=== PATIENT | male | born 1950 | race Caucasian/White ===

== ENCOUNTER 2017-02-23 17:17 | Emergency (ER) | payer OTHER ==
[~2017-02-23] VITALS: Ht 190.5 cm; Wt 127.0 kg
[~2017-02-23 17:17] MED LIST: AMITRIPTYLINE; ASPIRIN325 PO; ATORVASTATIN CA40 MG PO; BENICAR HCT 201 EACH PO; BENICAR HCT 401 EAC1 PO; BREO ELLIPTA 11 EACH IH; BUPRENORPHINE HC2 MG SUBLING; BUTRANS1 EAC1; BYSTOLIC 5 MG5 M1 PO; BYSTOLIC10 MG PO; CARDIZEM CD180 MG PO; CIPROFLOXACIN500 M3 PO; CO Q-10100 MG PO; COZAAR 25 MG TA25 M1 PO; CRESTOR10 MG PO; D3 + K2 DOTS 11 EACH PO; DOXYCYCLINE 10100 MG PO; ELIQUIS5 MG PO; FENOFIBRATE160 MG PO; FISH OIL 1,0001 EAC8 PO; FISH OIL 1,001000 M2 PO; FLEXERIL; FLORASTOR250 MG PO; GLUCOPHAGE500 MG PO; GLUCOVANCE 5-51 EACH PO; GLYBURIDE; GLYBURIDE 2.52.5 M1 PO; GLYBURIDE 5 MG T5 M1 PO; HYDRALAZINE 2525 M1 PO; HYDROCODON-ACE1 EAC5 PO; LOSARTAN-HCTZ1 EAC1 PO; LYRICA 75 MG CA75 MG PO; MAG6464 MG PO; MAGNESIUM; MAGOX 400400 MG PO; METFORMIN; NEURONTIN 300300 M1; NEURONTIN600 MG PO; NITROGLYCERIN0.4 MG SL; NORCO 10-325 T1 EACH PO; NORFLEX100 MG PO; OMEPRAZOLE 20 M20 M1 PO; PERCOCET 5-3251 EACH PO; PIOGLITAZONE15 MG; PIOGLITAZONE15 MG PO; PREDNISONE 10 M10 MG PO; PROTONIX40 M1 PO; RYTHMOL SR225 MG PO; SIMVASTATIN40 MG PO; SIMVASTATIN80 MG PO; SPIRIVA INH; TAMSULOSIN HCL0.4 M1 PO; TOPROL XL50 MG PO; VICODIN 5-3001 EACH; VITAMIN D3400 UNI2 PO; XARELTO; XARELTO15 MG PO; ZOCOR
[2017-02-23] MEDS ORDERED: DOXYCYCLINE 10100 MG PO (17:47)
[2017-02-23 18:00] VITALS: BP 147/75
== END 2017-02-23 18:00 | disposition home or self-care (01) ==
LOC: M.ERS 17:17
DX: L03.116 Cellulitis of left lower limb (principal); E11.9 Type 2 diabetes mellitus without complications; J44.9 Chronic obstructive pulmonary disease, unspecified; K21.9 Gastro-esophageal reflux disease without esophagitis; E66.9 Obesity, unspecified; I48.91 Unspecified atrial fibrillation; E11.42 Type 2 diabetes mellitus with diabetic polyneuropathy; Z96.652 Presence of left artificial knee joint; Z88.0 Allergy status to penicillin

== ENCOUNTER 2017-07-01 17:30 | Inpatient (IN) | payer OTHER ==
[~2017-07-01] VITALS: Ht 190.5 cm; Wt 128.8 kg
[2017-07-01 17:35] VITALS: BP 173/91
[2017-07-01] MEDS ORDERED: GABAPENTIN 100100 MG PO ×2 (17:48→22:57)
[2017-07-01] MEDS ORDERED: LOSARTAN-HCTZ1 EAC2 PO (17:49)
[2017-07-01] MEDS ORDERED: TOPROL XL25 MG PO (17:50)
[2017-07-01] MEDS ORDERED: BREO ELLIPTA 11 EACH INH (17:51)
[2017-07-01] MEDS ORDERED: RIFADIN300 MG PO (17:52)
[2017-07-01 18:09] LABS: HEMATOCRIT 39.7 % (42.0-52.0); MCH 29.1 pg (26.0-34.0); MCHC 32.7 g/dL (28.0-37.0); MCV 88.8 fL (80.0-100.0); MPV 8.1 fl. (7.2-11.1); NUCLEATED RBCS 0 /100WBC; PLATELET COUNT* 209 thou/uL (150-400); RBC 4.47 mil/uL (4.50-6.00); WBC 6.8 thou/uL (4.0-11.0)
[2017-07-01 18:16] LABS: ANION GAP 6 mmol/L (7-16); BUN 18 mg/dL (7-18); CALCIUM 9.4 mg/dL (8.5-10.1); CHLORIDE 104 mmol/L (98-107); CO2 31 mmol/L (21-32); CREATININE 1.2 mg/dL (0.6-1.3); GLUCOSE 132 mg/dL (70-99); SODIUM 141 mmol/L (136-145)
[2017-07-01 18:27] LABS: ALBUMIN 3.8 g/dL (3.4-5.0); ALKALINE PHOSPHATASE 53 U/L (46-116); NT-PRO BRAIN NAT PEPTIDE 1697 pg/mL (<300); SGOT 17 U/L (15-37); SGPT 19 U/L (30-65); TOTAL PROTEIN 7.4 g/dL (6.4-8.2); TROPONIN-I LEVEL <0.06 ng/mL (<0.06)
[2017-07-01 18:34] LABS: ABSOLUTE BASOPHILS 0.1 thou/uL (0.0-0.2); ABSOLUTE EOSINOPHILS 0.2 thou/uL (0.0-0.7); ABSOLUTE LYMPHOCYTES 0.5 thou/uL (0.8-5.3); ABSOLUTE MONOCYTES 0.7 thou/uL (0.0-1.2); ABSOLUTE NEUTROPHILS 5.3 thou/uL (1.6-8.1); PLATELET ESTIMATE ADEQUATE; POLYCHROMASIA 1+
[2017-07-01 19:30] LABS: URINE BILIRUBIN NEGATIVE (Negative); URINE BLOOD NEGATIVE (Negative); URINE CLARITY CLEAR; URINE COLOR YELLOW; URINE GLUCOSE-RANDOM NEGATIVE (Negative); URINE KETONES NEGATIVE (Negative); URINE LEUKOCYTES-REFLEX NEGATIVE (Negative); URINE NITRITE-REFLEX NEGATIVE (Negative); URINE PROTEIN NEGATIVE (Negative); URINE UROBILINOGEN 0.2 E.U./dl (0.2-1.0)
--- NOTE | 2017-07-01 22:10 | NUR ---
REPORT CALLED TO FLOOR NURSE
[2017-07-01 22:12] VITALS: BP 161/77
[2017-07-01 22:20] VITALS: BP 172/93
[2017-07-01] MEDS ORDERED: CLEOCIN HCL150 MG PO (22:53)
[2017-07-01] MEDS ORDERED: ACCUNEB SO1.25 MG/1 INH (22:54)
[2017-07-01] MEDS ORDERED: LASIX 20 MG TAB20 MG PO (23:04)
[2017-07-01] MEDS ORDERED: KLOR-CON 1010 MEQ PO (23:05)
[2017-07-01] MEDS ORDERED: AMARYL2 MG PO (23:10)
[2017-07-01] MEDS ORDERED: POTASSIUM20 PO (23:11)
[2017-07-02 04:30] VITALS: BP 148/98
--- NOTE | 2017-07-02 05:44 | NUR ---
PATIENT ARRIVED VIA CART FROM ED AROUND 0. TELE MONITOR TRACING AFIB WITH HR 60-70'S. ON 2L NC, DENIES SOA. IV SALINE LOCKED. NOTABLE REDNESS ON BLE, WORSE ON LEFT WITH BLISTERING- PIC PLACED IN CHART. PT REPORTING "DISCOMFORT" IN LE, TREATED WITH PRN PAIN MEDS AND GABAPENTIN. BP ELEVATED INITIALLY ON FLOOR, DOWN SINCE MEDICATED. SEE CHARTING. CALL LIGHT IN REACH, WILL CONTINUE WITH PLAN OF CARE.
[2017-07-02 08:00] VITALS: BP 181/64
[2017-07-02 09:00] VITALS: BP 181/64
--- NOTE | 2017-07-02 10:15 | EKG ---
[place] [address] ELECTROCARDIOGRAM REPORT Name: ROSA GIBBONS Room: [address] ADM IN M.R.#: [id number] Admission: 07/01/17 Attend Phys: Meche Amos Discharge: Date of : 48 Report #: [id number] THIS REPORT FOR: //name// [facility] ED Test Date: 2017-07-01 Test Time: 17:38:06 Pat Name: ROSA GIBBONS Department: Room: Gender: Cut Off Man: [place] : 1950 Requested By: [place] Order Number: [id number] MD: Cholo Weems Measurements Intervals [place] Rate: 85 P: 0 VT: 54 QRS: -4 QRSD: 85 T: 56 QT: 397 QTc: 472 Interpretive Statements atrial fibrillation Low voltage, extremity leads Compared to ECG 10/07/2016 16:34:45 no change Electronically Signed On 07-02-2017 10:15:10 CDT by Cholo Weems [email or web address] <ELECTRONICALLY SIGNED> By: Cholo Weems MD, [facility] 07/02/17 1015 [id number] Cholo Weems MD, [facility] /EPI
--- NOTE | 2017-07-02 11:06 | NUR ---
VSS, ASSUMED CARE IN THE AM, ASSESSMENT PERFORMED AND CHARTED, FALL PRECAUTIONS IN PLACE AND CALL LIGHT IN REACH, PT IS A&O4 AND UP AD JP, IS AFIB ON THE MONITOR, ON 2L NC, STATS PAIN IN LOWER LEGS BILATERAL, PT HAS CELLUITIES, IN LEGS, SWELLING IS 3 ON RIGHT AND 2 ON THE LEFT, PT GOAL IS TO CONTROL PAIN AND WALK IN ROOM AND KEEP LEGS ELAVATED, WILL FOLLOW WITH PLAIN OF CARE.
[2017-07-02 12:09] VITALS: BP 153/82
--- NOTE | 2017-07-02 12:10 | NUR ---
MET WITH PT TO DISCUSS HOME SITUATION/DC PLANNING. PT LIVES WITH . HE STATES RECENTLY HE HAS HAD MORE TROUBLE GETTING UP OUT OF THE CHAIR AND WALKING D/T LEG PAIN. STATES THEY ARE GETTING A 'LIFT CHAIR.' PRIOR TO THAT, PT HAS BEEN FAIRLY INDEPENDENT, DOING OWN ALDS. HELPS WITH HIS WOUND CARE AND CHECKS HIS FEET FREQUENTLY SINCE HE HAD A WOUND THERE. PT HAS GONE TO [facility] AND HAD HH WITH [facility] IN PAST. HE HAS CANE AT HOME. UNSURE OF ANY DC NEEDS AT THIS TIME, WILL FOLLOW
[2017-07-02 16:07] VITALS: BP 132/88
--- NOTE | 2017-07-02 16:31 | NUR ---
WOUND NURSE: PATIENT SEEN PERTAINING TO WOUND ON LEFT LOWER LEG. PRESENTS WITH PAIN, REDNESS, WARMTH, AND SWELLING IN LLE AND MILDLY SO IN THE RLE. THERE IS 3+PITTING EDEMA NOTED. THERE IS A BULLA MEASURING 2.0 X 1.5 X 0.1 CM AND WHICH IS NOT INTACT AND DRAINED SMALL AMOUNT OF SEROUS DRAINAGE. CLEANSED WITH WOUND CLEANSER AND COVERED WITH OPTIFOAM GENTLE AG, THEN APPLIED SINGLE LAYER SIZE F TUBIGRIPS TOES TO KNEE. PATIENT WAS INSTRUCTED ON MEASURES TO PROMOTE HEALING AND PREVENT FURTHER COMPLICATION. ALSO INSTRUCTED ON THE IMPORTANCE OF ELEVATION OF BLE MUCH POSSIBLE. PATIENT STATES HE UNDERSTANDS.
[2017-07-02 20:00] VITALS: BP 132/84
[2017-07-03] VITALS: BP 146/64
[2017-07-03 04:00] VITALS: BP 176/91
[2017-07-03 05:09] LABS: CALCIUM 9.3 mg/dL (8.5-10.1); POTASSIUM 3.9 mmol/L (3.5-5.1)
--- NOTE | 2017-07-03 07:07 | NUR ---
ASSUMED CARE OF PATIENT AT 1900 THE PATIENT REMAINS AFIB ON THE MONITOR O2 SAT MAINTAINED ON 2L NC CONTINUES TO BE UP AD JP TO THE ROUTINE REGIMEN CONTINUES TO BE EFFECTIVE FOR SX MANAGEMENT PAIN COMPLAINTS RECEIVED PRN X 3 THIS SHIFT SAFETY INTERVENTIONS CONTINUE BED LOWERED WHEELS LOCKED CALL LIGHT IN REACH SIDE RAILS UP REPORT TO BE GIVEN TO ONCOMING ENRRIQUE
[2017-07-03 08:30] VITALS: BP 159/68
--- NOTE | 2017-07-03 10:59 | NUR ---
Nutrition: Pt assessed for nursing risk 2 points. Wt: 189 to 193# since admit - no loss. H/o CHF, COPD, wound on LLE, afib, DM. RX: glimeperide, metformin, fish oil, lasix, albuterol. BG 134-146, albumin 3.8. CHO controlled diet. Pt stated that he is eating 100% of meals. He denied any questions/concerns about nutrition. Low risk at this time.
[2017-07-03 11:54] VITALS: BP 130/83
--- NOTE | 2017-07-03 14:10 | NUR ---
ASSUMED PT CARE AT 0700 PT IS ALERT AND ORIENTED X 4 PT C/O PAIN GAVE PAIN MEDS REASSESSED PT STATES PAIN MEDS HELPED, PT DENIES SOA, PT IS UP AD JP PT IS NOT A FALL RISK, PT IS RECEIVING ANTIBIOTICS NO ADVERSE REACTION NOTED, PT IS AFIB ON THE MONITOR, WILL CONTINUE TO MONITOR
[2017-07-03 15:23] VITALS: BP 107/83
[2017-07-03 19:40] VITALS: BP 158/93
[2017-07-04] VITALS: BP 150/85
[2017-07-04 04:00] VITALS: BP 128/72
--- NOTE | 2017-07-04 04:49 | NUR ---
END SHIFT: PT RESTED WELL. C/O PAIN IN BACK, KNEES, AND BILAT LE RELIEVED BY PAIN MEDICATION. AFIB ON MONITOR. REMAINS ON 2L NC. VSS. ASSESSMENT UNCHANGED. SAFETY PRECAUTIONS IN PLACE. CALL LIGHT IN REACH. PERFORMED HOURLY ROUNDING. WILL CONT TO MONITOR.
[2017-07-04 09:30] VITALS: BP 152/91
[2017-07-04 11:45] VITALS: BP 135/78
--- NOTE | 2017-07-04 12:21 | CON ---
[address] [address] CONSULTATION Name: ROSA GIBBONS Room: [address] ADM IN M.R.#: [id number] Admission: 07/01/17 Attend Phys: Meche Amos Discharge: Date of : 48 Report #: [id number] THIS REPORT FOR: //name// CC: Harish Skinner DATE OF SERVICE: 07/03/2017 ATTENDING PHYSICIAN: Dr. Skinner. REASON FOR EVALUATION: Lower extremity inflammatory eruption bilateral, probably multifactorial including left lower extremity skin and soft tissue infection. HISTORY OF PRESENT ILLNESS: Chart reviewed, patient examined. This is a 67-year-old man with diabetes mellitus, COPD, lower extremity venous stasis insufficiency with chronic dermatitis, who was admitted with bilateral lower extremity inflammatory eruption. This had progressed over the 4 days prior to admission, increasing erythema, swelling, pain and discomfort in particular on the left. He had been evaluated and felt to have a component of cellulitis, was treated with rifampin and clindamycin without significant benefit. Does have a history of COPD. He is on supplemental oxygen here, although not at home, although he apparently is chronically dyspneic, particularly with activity. He has been undergoing in addition to antimicrobial therapy with vancomycin and has been on some diuretics. He is lucid. ALLERGIES: LISTED TO PENICILLINS. CURRENT MEDICATIONS: Include ipratropium and albuterol inhaler, furosemide, vancomycin, hydralazine, cholecalciferol, saccharomyces, losartan, gabapentin, fenofibrate, metformin, budesonide, pantoprazole, metoprolol, tamsulosin, gabapentin, atorvastatin, apixaban. PAST MEDICAL HISTORY: Diabetes mellitus, COPD, hypertension, reflux, previous lower extremity ulcers, obstructive sleep apnea requiring CPAP, alpha 1 antitrypsin deficiency carrier, atrial fibrillation, venous stasis insufficiency. SOCIAL HISTORY: Former smoker, occasional ethanol. FAMILY HISTORY: Noncontributory. REVIEW OF SYSTEMS: As above. PHYSICAL EXAMINATION: GENERAL: [id number] distress. He has got oxygen in place, [place] [address] CONSULTATION Name: ROSA GIBBONS Room: [address]#: [id number] Admission: 07/01/17 Attend Phys: Meche Amos Discharge: Date of : 48 Report #: [id number] somewhat chronically ill. He is mildly undernourished. He is obese. VITAL SIGNS: Temperature 98.5, pulse 88, respirations 18, blood pressure 130/83. SKIN: Warm, dry, no rashes. HEENT: Otherwise, unremarkable. NECK: Supple. LUNGS: Scattered coarse breath sounds. HEART: Regular. ABDOMEN: Obese, soft, nontender. There are no peritoneal signs. EXTREMITIES: Bilateral lower extremities have moderate inflammation in the setting of what appears to be chronic edema, erythrodermic type eruption. There is superficial bullous lesion on the anterior lateral aspect of the mid third portion of the leg. GENITOURINARY: Deferred. RECTAL: Deferred. LABORATORY DATA: Blood cultures are sterile thus far. Most recent electrolytes, sodium 141, potassium 3.9, chloride 103, bicarbonate is 30, BUN and creatinine 16 and 1.0, estimated GFR of 74. Urinalysis unremarkable. CBC: White count of 6.8, H and H 13.0 and 39.7, platelets of 209. Liver functions unremarkable. Albumin 38. Total protein 7.4. Lactic acid 1.3. Chest x-ray: Mild pulmonary venous congestion. ASSESSMENT AND PLAN: Bilateral lower extremity inflammatory eruption. It is likely a component of cellulitis in particularly on the left. We will continue the parenteral therapy additional 1-2 days, plan on transition to oral antibiotics. Continue the compression and elevation as prescribed. Try to wean off oxygen as allowed. Increase activity. <ELECTRONICALLY SIGNED> By: Lacho Scanlon MD 07/04/17 1221 1213 [id number] Scanlon MD /nt
--- NOTE | 2017-07-04 13:53 | NUR ---
ASSUMED PT CARE AT 0700 PT IS ALERT AND ORIETNED X 4 PT IS UP AD JP PT IS NOT A FALL RISK, PT C/O PAIN GAVE PAIN MEDS REASSESSED PT STATES PAIN MEDS HELP, PT DENIES SOA ON RA, PT IS AFIB ON THE MONITOR, PT LOWER EXTREMITIES EDEMA HAS DECREASED, PT GIVEN ANTIBIOTICS, INFECTIOUS DISEASE CLEARED PT TO DISCHARGE HOSPITALIST ORDERED DISCHARGE WILL CONTINUE TO MONITOR
[2017-07-04] MEDS ORDERED: LASIX 20 MG TAB20 MG PO (14:41)
[2017-07-04] MEDS ORDERED: MINOCIN100 MG PO (16:14)
[2017-07-04 16:30] VITALS: BP 135/78
[2017-07-04 18:09] VITALS: BP 135/78
--- NOTE | 2017-07-06 17:42 | CON ---
[address] [address] CONSULTATION Name: ROSA GIBBONS Room: [address] IN M.R.#: [id number] Admission: 07/01/17 Attend Phys: Meche Amos Discharge: 07/04/17 Date of : 48 Report #: [id number] THIS REPORT FOR: //name// CC: Harish Smith DO Radha Skinner DATE OF SERVICE: 07/02/2017 TYPE OF REPORT: Cardiology consultation. PRIMARY CARE PHYSICIAN: Harish Smith D.O. HISTORY OF PRESENT ILLNESS: The patient is a 67-year-old white male who I was asked to see in the hospital today because of lower extremity edema. The patient has a long history of diabetes, hypertension and hyperlipidemia. He has been followed by my partner, Dr. Lynn. He has a history of chronic edema, has gone to the [facility] in the past. He initially saw Dr. Louise back in 2012 complaining of chest discomfort. Nuclear stress test at that time showed no evidence of ischemia. He then presented in 2014 again with chest pain. He was seen by Dr. Bell at that time. He apparently fell a year ago and fractured shoulder. He was found to have atrial fibrillation. It was decided to aim for rate control. He has been followed by Dr. Lynn since that time. He did have an echocardiogram last September that showed left ventricular hypertrophy, ejection fraction 60%, biatrial enlargement and right ventricle is dilated. The patient is not very active because of his size. He is 6 feet 2 inches and weighs 275 pounds. He has sleep apnea, uses CPAP. He saw Dr. Lynn in March this year. Recently, he has had increasing edema. He also developed a sore on his foot. He was admitted for further evaluation and treatment. PAST MEDICAL HISTORY: Significant for previous tonsillectomy, cataract extraction. Thyroglossal cyst removal as a child. He has had 3 knee surgeries. He had surgery by a deburrer on a callus on his foot. He has a history of hypertension, diabetes and hyperlipidemia. MEDICATIONS: Include Eliquis, Lipitor, fenofibrate, Lasix, Neurontin, Amaryl, Hyzaar, metformin, metoprolol, Protonix, potassium, Flomax and Spiriva inhaler. ALLERGIES: He has an allergy to PENICILLIN and SULFA. FAMILY HISTORY: His father had coronary artery bypass surgery. SOCIAL HISTORY: He is . He and his live in [place]. 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 Quit smoking years ago, rarely drinks alcohol. REVIEW OF SYSTEMS: He has had no history of stroke, asthma, [place] [id number] CONSULTATION Name: ROSA GIBBONS Room: [address] IN M.R.#: [id number] Admission: 07/01/17 Attend Phys: Meche Amos Discharge: 07/04/17 Date of : 48 Report #: [id number] disease, liver disease, kidney disease, cancer, psychiatric illness and chronic skin condition. PHYSICAL EXAMINATION: GENERAL: Revealed a large white male lying in bed. He appeared in no distress. VITAL SIGNS: He had a blood pressure of 150/60 and pulse 80. He is afebrile. HEENT: He is anicteric. Conjunctivae pink. Mucous membranes moist. NECK: Veins nondistended. No carotid bruits. Neck supple. CHEST: Clear to auscultation. CARDIAC: Irregular rhythm. ABDOMEN: Soft and nontender. EXTREMITIES: Cannot be examined, he had both legs, were wrapped. SKIN: Warm and dry. NEUROLOGICAL: Nonfocal. LYMPHATIC: No adenopathy. MUSCULOSKELETAL: No joint effusion. PSYCHIATRIC: Mood is appropriate. RADIOLOGICAL DATA: His ECG appeared to represent atrial fibrillation, controlled response and nonspecific ST-segment changes. His workup in the Emergency Room yesterday had a portable chest x-ray on admission that showed normal heart size, mild congestion. LABORATORY DATA: He had lab work: Sodium 141, creatinine 1.2 and glucose 132. Liver function studies are normal. Troponin 0.06. BNP 1697. White blood cell count 6.8 and hemoglobin 13. IMPRESSION AND RECOMMENDATIONS: 1. Permanent atrial fibrillation. Rate controlled with beta-jenise. I would continue chronic anticoagulation with Eliquis. 2. Hypertension. The patient has been on adrenergic receptor binder, diuretic and beta jenise. 3. Diabetes. 4. Hyperlipidemia. The patient is on a statin drug. 5. Obesity. 6. Sleep apnea. 7. Edema. Suspect venous insufficiency. Recommend diuretics. 8. Venous stasis ulcer. The patient seen by Infectious Disease. <ELECTRONICALLY SIGNED> By: Cholo Weems MD, FACC 07/06/17 1742 1732 0019Cholo Weems MD, FACC /nt
== END 2017-07-04 18:33 | disposition home or self-care (01) | DRG 602 ==
LOC: M.ERS 17:30 → M.2W 19:14 → M.TBA-ER 19:14 → M.2W 22:28
PROVIDERS: Internal Medicine Cardiovascular Disease; Nurse Practitioner Family; ADMIT Internal Medicine
DX: L03.116 Cellulitis of left lower limb (principal); I50.31 Acute diastolic (congestive) heart failure; J96.01 Acute respiratory failure with hypoxia; L03.115 Cellulitis of right lower limb; E11.9 Type 2 diabetes mellitus without complications; G47.33 Obstructive sleep apnea (adult) (pediatric); E78.5 Hyperlipidemia, unspecified; E66.9 Obesity, unspecified; K21.9 Gastro-esophageal reflux disease without esophagitis; I48.2 Chronic atrial fibrillation; I87.2 Venous insufficiency (chronic) (peripheral); I11.0 Hypertensive heart disease with heart failure; J44.9 Chronic obstructive pulmonary disease, unspecified; Z96.652 Presence of left artificial knee joint; Z86.718 Personal history of other venous thrombosis and embolism; Z79.01 Long term (current) use of anticoagulants; Z68.35 Body mass index [BMI] 35.0-35.9, adult; Z98.49 Cataract extraction status, unspecified eye; Z88.2 Allergy status to sulfonamides; Z88.0 Allergy status to penicillin; Z87.891 Personal history of nicotine dependence; Z79.2 Long term (current) use of antibiotics; Z79.899 Other long term (current) drug therapy

== ENCOUNTER → 2017-11-23 | Outpatient (CLI) | payer OTHER ==
[~2017-11-23] MED LIST changes: +ACCUNEB SO1.25 MG/1 INH; +AMARYL2 MG PO; +BREO ELLIPTA 11 EACH INH; +CLEOCIN HCL150 MG PO; +GABAPENTIN 100100 MG PO; +KLOR-CON 1010 MEQ PO; +LASIX 20 MG TAB20 MG PO; +LOSARTAN-HCTZ1 EAC2 PO; +MINOCIN100 MG PO; +POTASSIUM20 PO; +RIFADIN300 MG PO; +TOPROL XL25 MG PO
== END ==
LOC: M.ULTRA 13:30
DX: R22.42 Localized swelling, mass and lump, left lower limb (principal)

== ENCOUNTER 2018-03-12 08:53 | Inpatient (IN) | payer OTHER ==
[~2018-03-12] VITALS: Ht 190.5 cm; Wt 118.7 kg
--- NOTE | ~2018-03-12 | CON ---
[address] [address] CONSULTATION Name: GIBBONSROSA Room: [address] IN M.R.#: [id number] Admission: 03/12/18 Attend Phys: Antonia Tompkins MD Discharge: Date of : 48 Report #: [id number] THIS REPORT FOR: //name// CC: Antonia Smith DATE OF SERVICE: 03/13/2018 REQUESTING PHYSICIAN: Dr. Antonia Tompkins. REASON FOR CONSULT: Abdominal pain and elevated lipase. HISTORY OF PRESENT ILLNESS: This is a 67-year-old male with history of diabetes times last 20 years, who presents with epigastric pain and nausea. He admits eating something very greasy the night before his symptoms started. He denies alcohol consumption on a regular basis, but reports that he probably had a third of a pint the day of football game on Sunday. He also admits to having chronic nausea. He had recent upper and lower endoscopy by my partner, Dr. Bonilla. His colonoscopy was significant for colon polyps. He denies any diarrhea, constipation, hematochezia or melena. He also has not vomited and his pain is improving. PAST MEDICAL HISTORY: Significant for history of hypertension, AFib, diabetes mellitus, gastroesophageal reflux disease, COPD, left knee surgery, peripheral neuropathy, obstructive sleep apnea and DVT. ALLERGIES: SIGNIFICANT TO PENICILLIN. MEDICATIONS: Please refer to MAR. SOCIAL HISTORY: The patient reports that he may drink few times per year. He also is a former smoker, but has quit more than a year ago. FAMILY HISTORY: Negative for GI malignancy. PHYSICAL EXAMINATION: VITAL SIGNS: Reveals blood pressure of 155/89, respiration 18, pulse 93, temperature 97.7. LUNGS: Clear. CARDIOVASCULAR: Regular. ABDOMEN: Soft, mildly tender to deep palpation in the epigastric region. Bowel sounds are positive. NEUROLOGIC: The patient is alert, oriented x 3. LABORATORY DATA: Reveal sodium of 139, potassium 3.4, BUN is 10, creatinine [facility] [address] [place] [address] CONSULTATION Name: GIBBONSROSA Room: [address] IN [facility]#: [id number] Admission: 03/12/18 Attend Phys: Antonia Tompkins MD Discharge: Date of : 48 Report #: [id number] 0.9, glucose 185. AST is 18, ALT 25. INR is 1.1. HDL is 25, LDL 110, triglyceride is 156. BNP is 664. WBC is 18.4 with hemoglobin of 14.2 and platelets of 225. IMAGING: CT of abdomen and pelvis was obtained. This showed mild peripancreatic fat stranding and inflammation. There was no sign of pseudocysts or phlegmons. ASSESSMENT AND PLAN: The patient with pancreatitis of unknown origin. Since this is his first episode of pancreatitis, we will continue monitoring him. Since his pain has resolved and his abdomen is soft, I will start clear liquids and check his lipase in the morning. He also complains of chronic nausea for which he had upper endoscopy. We will order his gastric emptying during this hospitalization. I will make further recommendations based on his lipase tomorrow. By: 1536 [id number] Torres MD /nt
[2018-03-12 08:57] VITALS: BP 217/107
[2018-03-12 09:25] LABS: HEMATOCRIT 43.5 % (42.0-52.0); HEMOGLOBIN 14.4 gm/dL (14.0-18.0); MCH 29.3 pg (26.0-34.0); MCHC 33.1 g/dL (28.0-37.0); MCV 88.7 fL (80.0-100.0); MPV 8.3 fl. (7.2-11.1); NUCLEATED RBCS 0 /100WBC; PLATELET COUNT* 222 thou/uL (150-400); RBC 4.91 mil/uL (4.50-6.00); RDW-CV 15.1 % (10.5-14.5); WBC 12.1 thou/uL (4.0-11.0)
[2018-03-12 09:31] LABS: ANION GAP 9 mmol/L (7-16); BUN 16 mg/dL (7-18); CALCIUM 9.2 mg/dL (8.5-10.1); CHLORIDE 99 mmol/L (98-107); CO2 29 mmol/L (21-32); GLUCOSE 275 mg/dL (70-99); POTASSIUM 3.6 mmol/L (3.5-5.1); SODIUM 137 mmol/L (136-145)
[2018-03-12 09:38] LABS: INR 1.1; PROTIME 11.6 Seconds (9.20-11.50)
[2018-03-12 09:42] LABS: ALBUMIN 3.9 g/dL (3.4-5.0); ALKALINE PHOSPHATASE 61 U/L (46-116); NT-PRO BRAIN NAT PEPTIDE 664 pg/mL (<300); SGOT 22 U/L (15-37); SGPT 28 U/L (30-65); TOTAL BILIRUBIN 0.6 mg/dL (<0.1-1.0); TOTAL PROTEIN 7.7 g/dL (6.4-8.2); TROPONIN-I LEVEL <0.06 ng/mL (<0.06)
[2018-03-12 09:49] LABS: LIPASE 3637 U/L (73-393)
[2018-03-12 10:06] LABS: ABSOLUTE LYMPHOCYTES 1.1 thou/uL (0.8-5.3); ABSOLUTE MONOCYTES 0.2 thou/uL (0.0-1.2); ABSOLUTE NEUTROPHILS 10.8 thou/uL (1.6-8.1); PLATELET ESTIMATE ADEQUATE
[2018-03-12 14:17] VITALS: BP 209/96
[2018-03-12 14:30] VITALS: BP 205/108; BP 222/122
--- NOTE | 2018-03-12 15:00 | NUR ---
PT ARRIVED TO UNIT AT 1408 VIA GURNEY AND ED RN. 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 O2 SAT 93% ON RA. PT A&O X4, ABLE TO COMMUNICATE NEEDS TO STAFF. PT C/O PAIN 7/10 IN SHOULDER, BACK AND KNEE. PT C/O NAUSEA. PRN ZOFRAN GIVEN PRIOR TO TRANSPORT TO TELEMETRY UNIT. CALL LIGHT IN REACH. HOURLY ROUNDING FOR SAFETY AND PT NEEDS.
[2018-03-12 15:10] VITALS: BP 185/90
[2018-03-12 16:30] VITALS: BP 177/85
--- NOTE | 2018-03-12 16:45 | EKG ---
[place] [address] ELECTROCARDIOGRAM REPORT Name: ROSA GIBBONS Room: [address] ADM IN M.R.#: [id number] Admission: 03/12/18 Attend Phys: Antonia Tompkins MD Discharge: Date of : 48 Report #: [id number] THIS REPORT FOR: //name// [facility] ED Test Date: 2018-03-12 Test Time: 08:56:51 Pat Name: ROSA GIBBONS Department: Room: [facility] Gender: Learning Coordinator: Ramo EDEN : 1950 Requested By: Giovany Klein Order Number: [id number] MD: Keith De Santiago Measurements Intervals [place] Rate: 74 P: AL: QRS: 29 QRSD: 86 T: 226 QT: 370 QTc: 411 Interpretive Statements Atrial fibrillation Ventricular premature complex Borderline low voltage, extremity leads Repol abnrm, severe global ischemia (LM/MVD) Compared to ECG 07/01/2017 17:38:06 Ventricular premature complex(es) now present Early repolarization now present Possible ischemia now present Electronically Signed On 03-12-2018 16:45:37 SHOP REPAIRER by Keith De Santiago [email or web address] <ELECTRONICALLY SIGNED> By: Keith De Santiago MD, FACC 03/12/18 1645 0856 0856 Keith De Santiago MD, FACC /EPI
[2018-03-12 19:27] VITALS: BP 220/101
[2018-03-13] VITALS: BP 182/77
[2018-03-13 04:00] VITALS: BP 151/102
[2018-03-13 05:31] LABS: HEMATOCRIT 42.9 % (42.0-52.0); HEMOGLOBIN 14.2 gm/dL (14.0-18.0); MCV 87.7 fL (80.0-100.0); MPV 8.4 fl. (7.2-11.1); RBC 4.88 mil/uL (4.50-6.00); WBC 18.4 thou/uL (4.0-11.0)
[2018-03-13 06:25] LABS: ALBUMIN 3.7 g/dL (3.4-5.0); ALKALINE PHOSPHATASE 60 U/L (46-116); ANION GAP 9 mmol/L (7-16); BUN 10 mg/dL (7-18); CALCIUM 9.5 mg/dL (8.5-10.1); CHLORIDE 100 mmol/L (98-107); CHOLESTEROL 166 mg/dL (<200); CO2 30 mmol/L (21-32); CREATININE 0.9 mg/dL (0.6-1.3); GLUCOSE 185 mg/dL (70-99); HDL CHOLESTEROL 25 mg/dL (>40); LDL CHOLESTEROL 110 mg/dL (<100); MAGNESIUM 1.3 mg/dL (1.8-2.4); POTASSIUM 3.4 mmol/L (3.5-5.1); SGOT 18 U/L (15-37); SGPT 25 U/L (30-65); SODIUM 139 mmol/L (136-145); TC:HDL 6.6 Ratio (Not establshd); TOTAL BILIRUBIN 0.6 mg/dL (<0.1-1.0); TOTAL PROTEIN 7.4 g/dL (6.4-8.2); TRIGLYCERIDE 156 mg/dL (<150); VLDL 31 mg/dL (<40)
[2018-03-13 06:31] LABS: SERUM ASSESSMENT Clear
[2018-03-13 09:26] VITALS: BP 168/77
[2018-03-13 11:53] VITALS: BP 155/89
[2018-03-13 16:00] VITALS: BP 157/73
--- NOTE | 2018-03-13 16:20 | NUR ---
Pt is A&O. Resides at home with his . Normally independent. Pt has a cane that he can use for mobility. Pt sleeps with a cpap provided through [employer]. Hx of [facility] and [facility]. No hx of SNF. Goal is home at nv. No needs anticipated.
[2018-03-13 19:06] LABS: GLYCOHEMOGLOBIN (HGB A1C) 7.3 % (4.8-5.6)
[2018-03-13 20:00] VITALS: BP 183/87
[2018-03-14] VITALS: BP 165/85
[2018-03-14 04:00] VITALS: BP 166/70
[2018-03-14 04:50] LABS: HEMATOCRIT 40.9 % (42.0-52.0); HEMOGLOBIN 13.6 gm/dL (14.0-18.0); MCH 29.4 pg (26.0-34.0); MCHC 33.3 g/dL (28.0-37.0); MCV 88.2 fL (80.0-100.0); MPV 8.8 fl. (7.2-11.1); RBC 4.64 mil/uL (4.50-6.00); RDW-CV 15.2 % (10.5-14.5)
--- NOTE | 2018-03-14 04:58 | NUR ---
PT CARE ASSUMED AT 1930. SAT MAINATAINED IN 2L NC AT NIGHT FOR SLEEP APNEA. ALERT AND ORIENTED X4. CALL LIGHT WITHIN REACH AND BED IN LOW POSITION. PT C/O PAIN AND NAUSEA, MEDICATION GIVEN PER EMAR. DENIES SOB. HOURLY ROUNDING DONE FOR PT SAFETY.
[2018-03-14 05:04] LABS: CALCIUM 9.3 mg/dL (8.5-10.1); CREATININE 0.9 mg/dL (0.6-1.3); POTASSIUM 3.7 mmol/L (3.5-5.1)
[2018-03-14 08:00] VITALS: BP 175/84
[2018-03-14 11:15] VITALS: BP 171/82
--- NOTE | 2018-03-14 14:06 | NUR ---
ASSUMED PT CARE AT 0700. REPORT RECEIVED FROM NURSE. PT IS AOX4 AFIB ON MUNICIPAL BOND TRADER. COMPLAINS OF PAIN IN BACK AND KNEE AND SHOULDER. MORPHINE GIVEN. MONITORING LABS, VS. CALL LIGHT AT REACH. WILLL CONTINUE TO MONITOR PT.
[2018-03-14 15:30] VITALS: BP 162/99
[2018-03-14 20:00] VITALS: BP 135/86
[2018-03-15] VITALS: BP 149/86
[2018-03-15 04:00] VITALS: BP 145/77
--- NOTE | 2018-03-15 05:10 | NUR ---
PT CARE ASSUMED AT 1930. SAT MAINTAINED IN 2L O2 FOR SLEEP APNEA. ALERT AND ORIENTED X4. CALL LIGHT WITHIN REACH AND BED IN LOW POSITION. C/O PAIN, MEDICATION GIVEN PER EMAR. AFIB ON THE MONITOR. DENIES SOB. HOURLY ROUNDING DONE FOR PT SAFETY.
[2018-03-15 08:00] VITALS: BP 148/74
[2018-03-15] MEDS ORDERED: COZAAR 50 MG TA50 M1 PO (10:17)
[2018-03-15] MEDS ORDERED: NITROGLYCERIN0.4 MG SUBLING (10:17)
[2018-03-15] MEDS ORDERED: TOPROL XL25 MG PO (10:17)
[2018-03-15] MEDS ORDERED: FISH OIL 1,001000 M2 PO (10:17)
[2018-03-15] MEDS ORDERED: ASA81BEC PO (10:17)
--- NOTE | 2018-03-15 11:43 | NUR ---
ASSUMED PT CARE REPORT RECEIVED FROM NURSE. PT IS AOX4. AFIB ON SHEETROCK APPLICATOR. ON RA AND SATURATION IS ABOVE 95%. PT HAD GASTRIC EMPTYING TEST DONE TODAY. BACK FORM THE TEST AT 11:00 AM. RECEIVED HIS MEDICATIONS. DIET RESTARTED. PENDING RESULT FOR GET. WILL CONTACT GI WHEN RESULTS AR THROUGH
[2018-03-15 12:06] VITALS: BP 129/57
[2018-03-15 13:30] VITALS: BP 129/57
--- NOTE | 2018-03-15 14:00 | NUR ---
PT GASTRIC EMPTYING TEST WAS NORMAL. PT CONSUMED LUNCH. ZOFRAN WAS GIVEN FOR NAUSEA. PT OK TO DC FROM GI PINT OF VIEW. GI SAW PT IN ROOM. DISCHARGE INSTRUCTION GIVEN TO PT. PT STATES UNDERSTANDING. IN ROOM. IV LINE DC'd.
== END 2018-03-15 14:00 | disposition home or self-care (01) | DRG 304 ==
LOC: M.ERS 08:53 → M.TBA-ER 11:03 → M.2W 11:03
PROVIDERS: Emergency Medicine; Internal Medicine; Internal Medicine Gastroenterology; ADMIT Internal Medicine
DX: I16.0 Hypertensive urgency (principal); K85.90 Acute pancreatitis without necrosis or infection, unspecified; D68.69 Other thrombophilia; R65.10 Systemic inflammatory response syndrome (SIRS) of non-infectious origin without acute organ dysfunction; I50.32 Chronic diastolic (congestive) heart failure; I48.91 Unspecified atrial fibrillation; J44.9 Chronic obstructive pulmonary disease, unspecified; E66.9 Obesity, unspecified; I11.0 Hypertensive heart disease with heart failure; E78.5 Hyperlipidemia, unspecified; N40.0 Benign prostatic hyperplasia without lower urinary tract symptoms; E11.43 Type 2 diabetes mellitus with diabetic autonomic (poly)neuropathy; K31.84 Gastroparesis; I87.8 Other specified disorders of veins; K21.9 Gastro-esophageal reflux disease without esophagitis; Z96.652 Presence of left artificial knee joint; G47.33 Obstructive sleep apnea (adult) (pediatric); Z87.891 Personal history of nicotine dependence; Z86.718 Personal history of other venous thrombosis and embolism; Z79.51 Long term (current) use of inhaled steroids; Z79.01 Long term (current) use of anticoagulants; Z79.84 Long term (current) use of oral hypoglycemic drugs; Z79.899 Other long term (current) drug therapy; Z88.0 Allergy status to penicillin; Z68.32 Body mass index [BMI] 32.0-32.9, adult

== ENCOUNTER → 2018-10-23 | Outpatient (CLI) | payer OTHER ==
[~2018-10-23] MED LIST changes: +ASA81BEC PO; +COZAAR 50 MG TA50 M1 PO; +NITROGLYCERIN0.4 MG SUBLING
== END ==
LOC: M.MRI 10-22 16:30 → M.RAD 15:20 → M.MRI 16:30
DX: S43.401A Unspecified sprain of right shoulder joint, initial encounter (principal); M75.101 Unspecified rotator cuff tear or rupture of right shoulder, not specified as traumatic; M19.011 Primary osteoarthritis, right shoulder; M75.91 Shoulder lesion, unspecified, right shoulder; M25.78 Osteophyte, vertebrae; M12.88 Other specific arthropathies, not elsewhere classified, other specified site; M47.812 Spondylosis without myelopathy or radiculopathy, cervical region; X58.XXXA Exposure to other specified factors, initial encounter; Y93.89 Activity, other specified; Y92.89 Other specified places as the place of occurrence of the external cause; Y99.8 Other external cause status

== ENCOUNTER 2018-12-30 11:03 | Emergency (ER) | payer OTHER ==
[~2018-12-30] VITALS: Ht 190.5 cm; Wt 106.1 kg
[2018-12-30] MEDS ORDERED: SIMVASTATIN40 MG PO (11:18)
[2018-12-30 11:49] LABS: ABSOLUTE EOSINOPHILS 0.2 thou/uL (0.0-0.7); ABSOLUTE LYMPHOCYTES 0.9 thou/uL (0.8-5.3); ABSOLUTE MONOCYTES 0.7 thou/uL (0.0-1.2); ABSOLUTE NEUTROPHILS 6.7 thou/uL (1.6-8.1); BASOPHILS 0.4 %; HEMATOCRIT 43.4 % (42.0-52.0); HEMOGLOBIN 14.6 gm/dL (14.0-18.0); LYMPHOCYTES 10.1 %; MCH 29.8 pg (26.0-34.0); MCHC 33.6 g/dL (28.0-37.0); MCV 88.7 fL (80.0-100.0); MONOCYTES 8.5 %; MPV 7.7 fl. (7.2-11.1); NUCLEATED RBCS 0 /100WBC; PLATELET COUNT* 229 thou/uL (150-400); RDW-CV 15.8 % (10.5-14.5); WBC 8.4 thou/uL (4.0-11.0)
[2018-12-30 11:59] LABS: CALCIUM 9.9 mg/dL (8.5-10.1); POTASSIUM 4.1 mmol/L (3.5-5.1)
[2018-12-30 12:01] LABS: APTT 30.4 Seconds (25.0-31.3); INR 1.2; PROTIME 12.5 Seconds (9.20-11.50)
[2018-12-30 12:10] LABS: ALBUMIN 4.5 g/dL (3.4-5.0); TOTAL BILIRUBIN 1.1 mg/dL (<0.1-1.0); TOTAL PROTEIN 8.2 g/dL (6.4-8.2)
[2018-12-30 14:16] VITALS: BP 131/69
--- NOTE | 2018-12-30 16:32 | EKG ---
[place] [address] ELECTROCARDIOGRAM REPORT Name: ROSA GIBBONS Room: [facility]#: [id number] Admission: 12/30/18 Attend Phys: Discharge: 12/30/18 Date of : 48 Report #: [id number] THIS REPORT FOR: //name// [facility] ED Test Date: 2018-12-30 Test Time: 11:54:37 Pat Name: ROSA GIBBONS Department: Room: Gender: M Online Affiliate Marketing Manager: : 1950 Requested By: Amanda Arrieta Order Number: [id number] MD: Cholo Weems Measurements Intervals [place] Rate: 80 P: NM: QRS: 4 QRSD: 104 T: 36 QT: 405 QTc: 468 Interpretive Statements Atrial fibrillation Low voltage, extremity leads Baseline wander in lead(s) V1,V2,V3 Compared to ECG 03/12/2018 08:56:51 Ventricular premature complex(es) no longer present Possible ischemia no longer present Electronically Signed On 12-30-2018 16:32:03 LEATHER SCRUBBER by Cholo Weems [email or web address] <ELECTRONICALLY SIGNED> By: Cholo Weems MD, FAC 12/30/18 1632 1154 1154 Cholo Weems MD, [facility] /EPI
== END 2018-12-30 14:17 | disposition left against medical advice (07) ==
LOC: M.ERS 11:03
PROVIDERS: Nurse Practitioner Family
DX: R07.9 Chest pain, unspecified (principal); R06.00 Dyspnea, unspecified; I10 Essential (primary) hypertension; I48.91 Unspecified atrial fibrillation; E11.9 Type 2 diabetes mellitus without complications; E66.9 Obesity, unspecified; J44.9 Chronic obstructive pulmonary disease, unspecified; K21.9 Gastro-esophageal reflux disease without esophagitis; G47.30 Sleep apnea, unspecified; Z68.29 Body mass index [BMI] 29.0-29.9, adult; Z96.652 Presence of left artificial knee joint; Z86.718 Personal history of other venous thrombosis and embolism; Z87.891 Personal history of nicotine dependence; Z88.0 Allergy status to penicillin